=== PATIENT | female | born 1935 | race Caucasian/White ===

== ENCOUNTER 2017-04-21 11:29 | Emergency (ER) | payer MEDICARE, BC ==
[2017-04-21 12:30] LABS: CHLORIDE,CL 99 mmol/L (101-111); SODIUM,NA 132 mmol/L (135-145)
--- NOTE | 2017-04-21 12:58 | EDM.PDOC ---
ED HPI GENERAL MEDICAL PROBLEM - General Chief Complaint: Cardiovascular Problem Stated Complaint: [id number] EYES BLURRY HIGH BLOOD PRESSURE Time Seen by Provider: 04/21/17 12:30 Source of Information: Reports: Patient History Limitations: Reports: No Limitations - History of Present Illness INITIAL COMMENTS - FREE TEXT/NARRATIVE: This 81 yo female patient reports to the ED due to elevated blood pressure and blurred vision that started this morning at about 0800. The patient reports she was constipated last night, but has loose bowel movements today. The patient reports she has been eating and drinking normal amounts of flood and drink. The patient reports her vision symptoms have resolved since she has been in the ED and her blood pressure has come down. The patient reports no previous similar symptoms. Onset: Today Onset Date: 04/21/17 Onset Time: 08:00 Duration: Improving Location: Reports: Head Quality: Reports: Other Severity: Mild Improves with: Reports: None Worsens with: Reports: None Associated Symptoms: Reports: No Other Symptoms - Related Data Allergies Allergy/AdvReac Type Severity Reaction Status Date / Time sulfamethoxazole Allergy Rash Verified 04/21/17 12:25 [From Bactrim] trimethoprim [From Bactrim] Allergy Rash Verified 04/21/17 12:25 ED ROS GENERAL - Review of Systems Review Of Systems: ROS reveals no pertinent complaints other than HPI. ED EXAM, GENERAL - Physical Exam Exam: See Below Exam Limited By: No Limitations General Appearance: Alert, WD/WN, Mild Distress Eye Exam: Bilateral Eye: EOMI, Normal Inspection, PERRL Ears: Normal External Exam, Normal Canal, Hearing Grossly Normal, Normal TMs Nose: Normal Inspection, Normal Mucosa, No Blood Throat/Mouth: Normal Inspection, Normal Lips, Normal Teeth, Normal Gums, Normal Oropharynx, Normal Voice, No Airway Compromise Head: Atraumatic, Normocephalic Neck: Normal Inspection, Supple, Non-Tender, Full Range of Motion Respiratory/Chest: No Respiratory Distress, Lungs Clear, Normal Breath Sounds, No Accessory Muscle Use, Chest Non-Tender Cardiovascular: Normal Peripheral Pulses, Regular Rate, Rhythm, No Edema, No Gallop, No JVD, No Murmur, No Rub GI/Abdominal: Normal Bowel Sounds, Soft, Non-Tender, No Organomegaly, No Distention, No Abnormal Bruit, No Mass (Female) Exam: Deferred Rectal (Female) Exam: Deferred Back Exam: Normal Inspection, Full Range of Motion, NT Extremities: Normal Inspection, Normal Range of Motion, Non-Tender, Normal Capillary Refill, No Pedal Edema Neurological: Alert, Oriented, CN II-XII Intact, Normal Cognition, Normal Gait, Normal Reflexes, No Motor/Sensory Deficits Psychiatric: Normal Affect, Normal Mood Skin Exam: Warm, Dry, Intact, Normal Color, No Rash Lymphatic: No Adenopathy Course - Vital Signs Last Recorded V/S: Last Vital Signs Temp 36.6 C 04/21/17 12:12 Pulse 75 04/21/17 12:12 Resp 12 04/21/17 12:12 BP 165/67 H 04/21/17 12:16 Pulse Ox 100 04/21/17 12:12 - Orders/Labs/Meds Orders: Active Orders 24 hr Category Date Time Status EKG Documentation Completion [RC] URGENT Care 04/21/17 11:51 Active Sodium Chloride 0.9% [Normal Saline] 1,000 ml Med 04/21/17 12:37 Active IV .BOLUS Medication Orders Sodium Chloride (Normal Saline) 1,000 mls @ 500 mls/hr IV .BOLUS ONE Stop: 04/21/17 14:36 Last Admin: 04/21/17 13:06 Dose: 500 mls/hr Labs: Laboratory Tests 04/21/17 04/21/17 04/21/17 Range/Units 12:00 12:00 13:02 WBC 8.0 (5.0-10.0) 10^3/uL RBC 4.04 L (4.2-5.4) 10^6/uL Hgb 12.2 (12.0-16.0) g/dL Hct 36.2 L (37.0-47.0) % MCV 89.6 (80-100) fL MCH 30.2 (27.0-34.0) pg MCHC 33.7 (33.0-35.0) g/dL Plt Count 164 (150-450) 10^3/uL Neut % (Auto) 54.5 (42.2-75.2) % Lymph % (Auto) 33.8 (20.5-50.1) % [place] % (Auto) 9.9 H (2-8) % Eos % (Auto) 1.4 (1.0-3.0) % Baso % (Auto) 0.4 (0.0-1.0) % Sodium 132 L (135-145) mmol/L Potassium 3.7 (3.6-5.0) mmol/L Chloride 99 L (101-111) mmol/L Carbon Dioxide 26.0 (21.0-31.0) mmol/L Anion Gap 10.7 BUN 13 (7-18) mg/dL Creatinine 0.7 (0.6-1.3) mg/dL Est Cr Clr Drug Dosing TNP Estimated GFR (MDRD) > 60 BUN/Creatinine Ratio 18.57 Glucose 99 (74-105) mg/dL Calcium 8.7 (8.4-10.2) mg/dl Total Bilirubin 0.6 (0.2-1.0) mg/dL AST 20 (10-42) IU/L ALT 10 (10-60) IU/L Alkaline Phosphatase 46 (42-121) IU/L Troponin I < 0.02 (0.00-0.02) ng/ml Total Protein 6.7 (6.7-8.2) g/dl Albumin 3.8 (3.2-5.5) g/dl Globulin 2.9 Albumin/Globulin Ratio 1.31 Urine Color Yellow (YELLOW) Urine Appearance Cloudy (CLEAR) Urine pH 7.0 (5.0-9.0) Ur Specific [place] 1.010 (1.005-1.030) Urine Protein Negative (NEGATIVE) Urine Glucose (UA) Negative (NEGATIVE) Urine Ketones Negative (NEGATIVE) Urine Occult Blood Trace-intact H (NEGATIVE) Urine Nitrite Negative (NEGATIVE) Urine Bilirubin Negative (NEGATIVE) Urine Urobilinogen 0.2 (0.2-1.0) mg/dL Ur Leukocyte Esterase Small H (NEGATIVE) Urine RBC 5-10 H /HPF Urine WBC 50-75 H (0-5/HPF) /HPF Ur Epithelial Cells Rare /HPF Amorphous Sediment Few (0/HPF) /HPF Urine Bacteria Moderate H (0-FEW/HPF) /HPF Meds: Medications Generic Name Dose Route Start Last Admin Trade Name Freq PRN Reason Stop Dose Admin Sodium Chloride 1,000 mls @ 500 mls/hr 04/21/17 12:37 04/21/17 13:06 Normal Saline IV 04/21/17 14:36 500 mls/hr .BOLUS ONE Administration Departure - Departure Time of Disposition: 14:09 Disposition: Home, Self-Care 01 Condition: Fair Clinical Impression: Dizziness Instructions: Dizziness, [id number] Forms: ED Department Discharge Care Plan Goals: The patient and family were advised of the examination, lab, x-ray and EKG results during the visit. The patient was given IV fluids while in the ED with resolution of her symptoms. If the patient has any additional symptoms or concerns, the patient should follow-up with her primary care facility or return to the emergency department. - My Orders Last 24 Hours: My Active Orders 04/21/17 11:51 EKG Documentation Completion [RC] URGENT 04/21/17 12:37 Sodium Chloride 0.9% [Normal Saline] 1,000 ml IV .BOLUS - Assessment/Plan Last 24 Hours: My Active Orders 04/21/17 11:51 EKG Documentation Completion [RC] URGENT 04/21/17 12:37 Sodium Chloride 0.9% [Normal Saline] 1,000 ml IV .BOLUS
[2017-04-21] MEDS: Sodium Chloride 0.9% 1,000 ML IV ONE (13:06)
--- NOTE | 2017-04-21 13:10 | CR ---
CLINICAL HISTORY: 81-year-old female complaining of dizziness. INTERPRETATION: Huge hiatus hernia behind the heart to the left of midline partially silhouetting the ipsilateral hemidiaphragm that was present in retrospect on 21 February 2013 exam. Normal cardiac silhouette without new cephalization of flow, signs of alveolar edema or dependent ple ural effusion. No lung mass, hilar lymphadenopathy or focal lobar pneumonia. CONCLUSION: No acute new cardiopulmonary abnormality. Hiatus hernia.
== END 2017-04-21 14:57 | disposition home or self-care (01) ==
LOC: DL.ED 11:29
DX: R42 Dizziness and giddiness (principal); Z88.2 Allergy status to sulfonamides; Z88.1 Allergy status to other antibiotic agents
CPT/HCPCS: 36415; 71045; 80053; 81001; 84484; 85025; 93005; 93010; 96360; 96361; 99284; J7030

== ENCOUNTER 2017-05-31 09:14 | Emergency (ER) | payer MEDICARE, BC ==
--- NOTE | 2017-05-31 09:14 | EDM.PDOC ---
ED HPI GENERAL MEDICAL PROBLEM - General Stated Complaint: FALL. IN BY DL AMB. Time Seen by Provider: 05/31/17 09:00 Source of Information: Reports: Patient History Limitations: Reports: No Limitations - History of Present Illness INITIAL COMMENTS - FREE TEXT/NARRATIVE: This 81 yo female patient was brought to the ED by [facility] due to a fall. The patient reports she has fallen 2 times (once last night and once just prior to her arrival in the ED). The patient reports she was going down the ramp to her home when she noticed that she was moving too fast and fell. The patient reports she hit the left side of her head (upper ear), left chest, and left arm during the fall. The patient reports she was assisted up last night and did well throughout the night. This morning, the patient reports she was in the bathroom changing her colostomy bag and fell. The patient reports that she does not remember falling or hitting her head this morning, but could not get off the floor. The patient reports that her could not help her get to her feet. At the time of assessment, the patient reports pain to her left upper ear , left side of her head, left chest wall as well as generalized left sided soreness. The patient has several skin tears to her left elbow and left forearm from the fall last night (skin tears were bandaged last night by the patient's neighbor). The patient also reports feeling nauseated. Onset: Today (fell this morning), Other (also fell last night) Duration: Constant Location: Reports: Head (left temporal area, left upper ear), Chest (left lateral chest wall), Upper Extremity, Left (left elbow and forearm) Quality: Reports: Ache, Dull Severity: Moderate Improves with: Reports: None Worsens with: Reports: None Left Chest Pain Score (Numeric/FACES): 8 - Related Data Allergies Allergy/AdvReac Type Severity Reaction Status Date / Time sulfamethoxazole Allergy Rash Verified 04/21/17 12:25 [From Bactrim] trimethoprim [From Bactrim] Allergy Rash Verified 04/21/17 12:25 Home Meds: Home Meds Omeprazole 20 mg PO DAILY 05/31/17 [History] Raloxifene [Evista] 60 mg PO DAILY 05/31/17 [History] Past Medical History Oncologic (Cancer) History: Reports: Bladder - Past Surgical History Oncologic Surgical History: Reports: Other (See Below) Other Oncologic Surgeries/Procedures: urostomy Social & Family History - Tobacco Use Smoking Status *Q: Never Smoker - Caffeine Use Caffeine Use: Reports: None - Recreational Drug Use Recreational Drug Use: No ED ROS GENERAL - Review of Systems Review Of Systems: ROS reveals no pertinent complaints other than HPI. ED EXAM, GENERAL - Physical Exam Exam: See Below Exam Limited By: No Limitations General Appearance: Alert, WD/WN, Mild Distress Eye Exam: Bilateral Eye: EOMI, Normal Inspection, PERRL Ears: Normal Canal, Hearing Grossly Normal, Normal TMs, Other (bruising noted to the left upper ear) Nose: Normal Inspection, Normal Mucosa, No Blood Throat/Mouth: Normal Inspection, Normal Lips, Normal Teeth, Normal Gums, Normal Oropharynx, Normal Voice, No Airway Compromise Head: Other (left temporal tenderness to palpation ) Neck: Normal Inspection, Supple, Non-Tender, Full Range of Motion Respiratory/Chest: No Respiratory Distress, Lungs Clear, Normal Breath Sounds, No Accessory Muscle Use, Other (left chest wall tenderness) Cardiovascular: Normal Peripheral Pulses, Regular Rate, Rhythm, No Edema, No Gallop, No JVD, No Murmur, No Rub GI/Abdominal: Normal Bowel Sounds, Soft, Non-Tender, No Organomegaly, No Distention, No Abnormal Bruit, No Mass (Female) Exam: Deferred Rectal (Female) Exam: Deferred Back Exam: Normal Inspection, Full Range of Motion Extremities: Normal Range of Motion, No Pedal Edema, Normal Capillary Refill, Arm Pain (left arm and forearm tenderness with skin tears (bandaged from fall last night)) Neurological: Alert, Oriented, CN II-XII Intact, Normal Cognition Psychiatric: Normal Affect, Normal Mood Skin Exam: Ecchymosis (left elbow and left forearm), Wound/Incision (skin tears to left elbow and left forearm) Lymphatic: No Adenopathy Course - Vital Signs Last Recorded V/S: Last Vital Signs Temp 36.1 C 05/31/17 09:20 Pulse 68 05/31/17 09:20 Resp 16 05/31/17 09:20 BP 180/80 H 05/31/17 09:20 Pulse Ox 96 05/31/17 09:20 - Orders/Labs/Meds Orders: Active Orders 24 hr Category Date Time Status EKG Documentation Completion [RC] URGENT Care 05/31/17 09:05 Ordered UA W/MICROSCOPIC [URIN] Stat Lab 05/31/17 09:07 Ordered Sodium Chloride 0.9% @ 125 MLS/HR (1000ml) Med 05/31/17 09:45 Ordered Sodium Chloride 0.9% [Normal Saline] 1,000 ml IV ASDIRECTED Medication Orders Sodium Chloride (Normal Saline) 1,000 mls @ 125 mls/hr IV ASDIRECTED ZENOBIA Last Admin: 05/31/17 10:50 Dose: 125 mls/hr Labs: Laboratory Tests 05/31/17 05/31/17 05/31/17 Range/Units 09:17 09:17 10:23 WBC 9.6 (5.0-10.0) 10^3/uL RBC 4.11 L (4.2-5.4) 10^6/uL Hgb 12.4 (12.0-16.0) g/dL Hct 37.0 (37.0-47.0) % MCV 90.0 (80-100) fL MCH 30.2 (27.0-34.0) pg MCHC 33.5 (33.0-35.0) g/dL Plt Count 158 (150-450) 10^3/uL Neut % (Auto) 67.1 (42.2-75.2) % Lymph % (Auto) 24.0 (20.5-50.1) % [place] % (Auto) 8.1 H (2-8) % Eos % (Auto) 0.8 L (1.0-3.0) % Baso % (Auto) 0.0 (0.0-1.0) % Sodium 137 (135-145) mmol/L Potassium 4.0 (3.6-5.0) mmol/L Chloride 102 (101-111) mmol/L Carbon Dioxide 28.0 (21.0-31.0) mmol/L Anion Gap 11.0 BUN 13 (7-18) mg/dL Creatinine 0.7 (0.6-1.3) mg/dL Est Cr Clr Drug Dosing 49.01 mL/min Estimated GFR (MDRD) > 60 BUN/Creatinine Ratio 18.57 Glucose 114 H (74-105) mg/dL Calcium 8.8 (8.4-10.2) mg/dl Total Bilirubin 0.8 (0.2-1.0) mg/dL AST 22 (10-42) IU/L ALT 12 (10-60) IU/L Alkaline Phosphatase 46 (42-121) IU/L Troponin I < 0.02 (0.00-0.02) ng/ml Total Protein 7.0 (6.7-8.2) g/dl Albumin 3.9 (3.2-5.5) g/dl Globulin 3.1 Albumin/Globulin Ratio 1.26 Urine Color Yellow (YELLOW) Urine Appearance Slightly cloudy (CLEAR) Urine pH 7.0 (5.0-9.0) Ur Specific [place] 1.015 (1.005-1.030) Urine Protein 30 H (NEGATIVE) Urine Glucose (UA) Negative (NEGATIVE) Urine Ketones Negative (NEGATIVE) Urine Occult Blood Moderate H (NEGATIVE) Urine Nitrite Negative (NEGATIVE) Urine Bilirubin Negative (NEGATIVE) Urine Urobilinogen 0.2 (0.2-1.0) mg/dL Ur Leukocyte Esterase Negative (NEGATIVE) Urine RBC 40-50 H /HPF Urine WBC 10-20 H (0-5/HPF) /HPF Ur Epithelial Cells Few /HPF Amorphous Sediment Occasional (0/HPF) /HPF Urine Bacteria Moderate H (0-FEW/HPF) /HPF Hyaline Casts Moderate H /LPF Urine Mucus Many H /LPF Meds: Medications Generic Name Dose Route Start Last Admin Trade Name Freq PRN Reason Stop Dose Admin Sodium Chloride 1,000 mls @ 125 mls/hr 05/31/17 09:45 05/31/17 10:50 Normal Saline IV 125 mls/hr ASDIRECTED ZENOBIA Administration Discontinued Medications Generic Name Dose Route Start Last Admin Trade Name Freq PRN Reason Stop Dose Admin Acetaminophen 650 mg 05/31/17 10:57 Tylenol PO 05/31/17 10:58 NOW ONE Ondansetron HCl 4 mg 05/31/17 09:42 05/31/17 10:51 Zofran IV 05/31/17 09:43 4 mg ONETIME ONE Administration - Re-Assessments/Exams Free Text/Narrative Re-Assessment/Exam: 05/31/17 09:42 After the patient returned from CT, the patient became nauseated and vomited. An IV and Zofran were ordered. Departure - Departure Time of Disposition: 11:00 Disposition: Home, Self-Care 01 Condition: Fair Clinical Impression: Concussion Qualifiers: Encounter type: initial encounter Loss of consciousness presence/duration: without LOC Qualified Code(s): S06.0X0A - Concussion without loss of consciousness, initial encounter Syncope Qualifiers: Syncope type: unspecified Qualified Code(s): R55 - Syncope and collapse - Discharge Information Instructions: Concussion, Adult, [id number], Syncope, [id number] Forms: ED Department Discharge Care Plan Goals: The patient was advised of the examination, lab, EKG, CT and x-ray results during the visit. The patient was encouraged to rest and relax to allow her body to heal. If the patient has any additional symptoms or concerns, the patient should follow-up with her primary care facility or return to the emergency department. - My Orders Last 24 Hours: My Active Orders 05/31/17 09:05 EKG Documentation Completion [RC] URGENT 05/31/17 09:07 UA W/MICROSCOPIC [URIN] Stat 05/31/17 09:45 Sodium Chloride 0.9% @ 125 MLS/HR (1000ml) Sodium Chloride 0.9% [Normal Saline] 1,000 ml IV ASDIRECTED - Assessment/Plan Last 24 Hours: My Active Orders 05/31/17 09:05 EKG Documentation Completion [RC] URGENT 05/31/17 09:07 UA W/MICROSCOPIC [URIN] Stat 05/31/17 09:45 Sodium Chloride 0.9% @ 125 MLS/HR (1000ml) Sodium Chloride 0.9% [Normal Saline] 1,000 ml IV ASDIRECTED
[2017-05-31 09:42] LABS: CHLORIDE,CL 102 mmol/L (101-111); SODIUM,NA 137 mmol/L (135-145)
[2017-05-31] MEDS ORDERED: Ondansetron 4 MG/2 ML SDV IV ONE (09:42)
[2017-05-31] MEDS ORDERED: Sodium Chloride 0.9% 1,000 ML IV SCH (09:45)
--- NOTE | 2017-05-31 09:55 | CR ---
Clinical history: 81-year-old female left chest wall pain associated with recent fall. Interpretation: Chronic asymmetric elevation left hemidiaphragm and what appears to be a large new hi atus hernia, left of midline, since 21 April 2017 comparison film. No sign of left rib fracture, ipsilateral dependent pleural effusion or left-sided pneumothorax. Normal cardiac silhouette without alveolar edema or dependent pleural effusion. Right lung and pleura l spaces clear. CONCLUSION: Apparent large new left-sided hiatus hernia. No rib fracture or pneumothorax.
--- NOTE | 2017-05-31 10:48 | CT ---
CLINICAL HISTORY: 81-year-old 140 pound female who fell injuring left chest and ear (pain). SCAN TECHNIQUE: Volume acquisition of data from an emergency unenhanced CT scan of the head and brain obtained with the patient lying supine on the Siemens multislice CT scanner [place], [place]. All data archived in the PACS system for storage and study (bone/brain [facility]). INTERPRETATION: Negative exam. Uniformly thick bony calvarium without sign of skull fracture, underlying brain contusion or epidural /subdural hematoma. Symmetric clear pneumatization of the mastoid and paranasal sinuses. Nasal septum is straight in the midline. Generalized severe but symmetric cerebral cortical atrophy and scattered small microvascular hemisphe nicko ischemic infarcts. No supratentorial/posterior fossa mass lesion. No hydrocephalus. No acute intracerebral/intraventricu lar/subarachnoid bleed. Cerebellum and brainstem unremarkable. Normal TMJs. Zygomatic arches and bony orbits unremarkable. CONCLUSION: Atrophy and microvascular ischemic changes. No skull fracture, intracranial mass, hydroce phalus or bleed.
[2017-05-31] MEDS ORDERED: Acetaminophen 325 MG Tab PO ONE (10:57)
--- NOTE | 2017-06-01 10:24 | EKG ---
05/31/2017- LUIS FELIPE BYRD - EKG, per my reading, shows sinus rhythm at a rate of 73. [facility] /[id number]
== END 2017-05-31 11:32 | disposition home or self-care (01) ==
LOC: DL.ED 09:14
DX: S06.0X0A Concussion without loss of consciousness, initial encounter (principal); S51.012A Laceration without foreign body of left elbow, initial encounter; S51.812A Laceration without foreign body of left forearm, initial encounter; S50.02XA Contusion of left elbow, initial encounter; S50.12XA Contusion of left forearm, initial encounter; R55 Syncope and collapse; Z88.2 Allergy status to sulfonamides; Z88.1 Allergy status to other antibiotic agents; Z79.899 Other long term (current) drug therapy; W19.XXXA Unspecified fall, initial encounter; W22.8XXA Striking against or struck by other objects, initial encounter
CPT/HCPCS: 36415; 70450; 71045; 80053; 81001; 84484; 85025; 93005; 93010; 96361; 96374; 99284; A9270; J2405; J7030

== ENCOUNTER 2017-06-24 14:11 | Emergency (ER) | payer MEDICARE, BC ==
[2017-06-24] MEDS ORDERED: Cyclobenzaprine 10 MG Tab PO ONE (15:35)
[2017-06-24] MEDS ORDERED: Ketorolac 30 MG/ML SDV IM ONE (15:35)
--- NOTE | 2017-06-24 15:46 | EDM.PDOC ---
ED HPI GENERAL MEDICAL PROBLEM - General Chief Complaint: Back Pain or Injury Stated Complaint: SIDE PAIN, TROUBLE WALKING Time Seen by Provider: 06/24/17 15:30 Source of Information: Reports: Patient History Limitations: Reports: No Limitations - History of Present Illness INITIAL COMMENTS - FREE TEXT/NARRATIVE: This 81 yo female patient was brought to the Ed due to left hip pain. The patient reports that she fell about 1 month ago and has been doing pretty well at home. The patient was advised to use heat as well as avoid using her brace when she began to have more difficulties. The patient reports that she feels like her muscles are squeezing on the area causing increased pain. Duration: Day(s): (2), Constant, Getting Worse Location: Reports: Lower Extremity, Left Quality: Reports: Ache Severity: Moderate Worsens with: Reports: None Context: Reports: Other Associated Symptoms: Reports: No Other Symptoms Treatments [employer] REPA[employer]ER: Reports: Acetaminophen Left Flank Pain Score (Numeric/FACES): 10 - Related Data Allergies Allergy/AdvReac Type Severity Reaction Status Date / Time sulfamethoxazole Allergy Rash Verified 04/21/17 12:25 [From Bactrim] trimethoprim [From Bactrim] Allergy Rash Verified 04/21/17 12:25 Home Meds: Home Meds Omeprazole 20 mg PO DAILY 05/31/17 [History] Raloxifene [Evista] 60 mg PO DAILY 05/31/17 [History] Past Medical History HEENT History: Reports: Impaired Vision Gastrointestinal History: Reports: GERD Genitourinary History: Reports: Urostomy Oncologic (Cancer) History: Reports: Bladder - Past Surgical History Female Surgical History: Reports: Hysterectomy Oncologic Surgical History: Reports: Other (See Below) Other Oncologic Surgeries/Procedures: urostomy Social & Family History - Tobacco Use Smoking Status *Q: Never Smoker Second Hand Smoke Exposure: No - Caffeine Use Caffeine Use: Reports: Coffee, Tea - Recreational Drug Use Recreational Drug Use: No ED ROS GENERAL - Review of Systems Review Of Systems: ROS reveals no pertinent complaints other than HPI. ED EXAM,LOWER BACK PAIN/INJURY - Physical Exam Exam: See Below Exam Limited By: No Limitations General Appearance: Alert, WD/WN, Moderate Distress Eye Exam: Bilateral Eye: Normal Inspection, PERRL Ears: Normal External Exam Nose: Normal Inspection Throat/Mouth: Normal Inspection, Normal Lips, Normal Teeth, Normal Gums Head: Atraumatic, Normocephalic Neck: Normal Inspection, Supple, Non-Tender, Full Range of Motion Respiratory/Chest: No Respiratory Distress, Lungs Clear, Normal Breath Sounds, No Accessory Muscle Use, Chest Non-Tender Cardiovascular: Normal Peripheral Pulses GI/Abdominal: Normal Bowel Sounds, Soft, Non-Tender, No Organomegaly, No Distention, No Abnormal Bruit, No Mass (Female) Exam: Deferred Rectal (Female) Exam: Deferred Back Exam: Normal Inspection, Full Range of Motion, NT Extremities: Leg Pain (left hip pain with muscle spasms) Neurological: Alert, Normal Mood/Affect, CN II-XII Intact Psychiatric: Normal Affect, Normal Mood Skin Exam: Warm, Dry, Intact, Normal Color, No Rash Lymphatic: No Adenopathy Course - Vital Signs Last Recorded V/S: Last Vital Signs Temp 36.6 C 06/24/17 14:53 Pulse 84 06/24/17 14:53 Resp 16 06/24/17 14:53 BP 162/61 H 06/24/17 14:53 Pulse Ox 94 L 06/24/17 14:53 - Orders/Labs/Meds Meds: Medications Discontinued Medications Generic Name Dose Route Start Last Admin Trade Name Freq PRN Reason Stop Dose Admin Cyclobenzaprine HCl 10 mg 06/24/17 15:35 Flexeril PO 06/24/17 15:36 ONETIME ONE Ketorolac Tromethamine 30 mg 06/24/17 15:35 Toradol IM 06/24/17 15:36 ONETIME ONE Departure - Departure Time of Disposition: 15:46 Disposition: Home, Self-Care 01 Condition: Fair Clinical Impression: Muscle spasm Muscle strain of left hip Qualifiers: Encounter type: initial encounter Qualified Code(s): S76.012A - Strain of muscle, fascia and tendon of left hip, initial encounter - Discharge Information Instructions: Muscle Cramps and Spasms, [id number], Muscle Strain, Easy-to- Read Care Plan Goals: The patient was advised of the examination results during the visit. The patient was given an injection of Toradol and an oral dose of Flexeril while in the ED. The patient was discharged with a script for a Medrol Dose Pack to take as directed and Flexeril (5 mg) # 20 to take 1 by mouth every 6 hours as needed for muscle spasms. If the patient has any additional symptoms or concerns, the patient should follow-up with her primary care facility or return to the emergency department.
== END 2017-06-24 16:01 | disposition home or self-care (01) ==
LOC: DL.ED 14:11
DX: S76.012A Strain of muscle, fascia and tendon of left hip, initial encounter (principal); M62.838 Other muscle spasm; K21.9 Gastro-esophageal reflux disease without esophagitis; Z88.2 Allergy status to sulfonamides; Z88.1 Allergy status to other antibiotic agents; Z79.899 Other long term (current) drug therapy; W19.XXXA Unspecified fall, initial encounter
CPT/HCPCS: 96372; 99282; A9270; J1885; 99283

== ENCOUNTER 2018-06-09 14:26 | Inpatient (IN) | payer MEDICARE, BC ==
--- NOTE | 2018-06-09 14:27 | EDM.PDOC ---
ED HPI GENERAL MEDICAL PROBLEM - General Chief Complaint: Lower Extremity Injury/Pain Stated Complaint: AMBULANCE / HIP PAIN Time Seen by Provider: 06/09/18 14:27 Source of Information: Reports: Patient, EMS, Old Records, RN, RN Notes Reviewed History Limitations: Reports: No Limitations - History of Present Illness INITIAL COMMENTS - FREE TEXT/NARRATIVE: Pt arrives by ambulance with c/o left hip pain sustained from a ground level fall as she left the [employer] [facility]. She denies any other injury. Denies head injury or neck pain. Pt rates the pain 8/10. The pain reports her pain is worse with movement and improved with immobilization. Onset: Today, Sudden Duration: Constant Location: Reports: Lower Extremity, Left Quality: Reports: Ache Severity: Severe Improves with: Reports: Immobilization, Rest Worsens with: Reports: Movement Associated Symptoms: Reports: No Other Symptoms - Related Data Allergies Allergy/AdvReac Type Severity Reaction Status Date / Time acetaminophen [From Percocet] Allergy severe Verified 06/09/18 14:42 nausea, got me so sick oxycodone [From Percocet] Allergy severe Verified 06/09/18 14:42 nausea, got me so sick sulfamethoxazole Allergy Rash Verified 06/09/18 14:41 [From Bactrim] trimethoprim [From Bactrim] Allergy Rash Verified 06/09/18 14:41 Home Meds: Home Meds Omeprazole 20 mg PO DAILY 05/31/17 [History] Alendronate Sodium 70 mg PO WEEKLY 06/09/18 [History] Past Medical History HEENT History: Reports: Impaired Vision Gastrointestinal History: Reports: GERD Genitourinary History: Reports: Urostomy Oncologic (Cancer) History: Reports: Bladder - Past Surgical History Female Surgical History: Reports: Hysterectomy Oncologic Surgical History: Reports: Other (See Below) Other Oncologic Surgeries/Procedures: urostomy Social & Family History - Family History Family Medical History: Noncontributory - Caffeine Use Caffeine Use: Reports: Coffee, Tea - Living Situation & Occupation Living situation: Reports: , with Spouse Occupation: Retired Review of Systems - Review of Systems Review Of Systems: ROS reveals no pertinent complaints other than HPI. ED EXAM, GENERAL - Physical Exam Exam: See Below Exam Limited By: No Limitations General Appearance: Alert, WD/WN, No Apparent Distress Nose: Normal Inspection, Normal Mucosa, No Blood Throat/Mouth: Normal Inspection, Normal Lips, Normal Voice, No Airway Compromise Head: Atraumatic, Normocephalic Neck: Normal Inspection, Supple, Non-Tender, Full Range of Motion Respiratory/Chest: No Respiratory Distress, Lungs Clear, Normal Breath Sounds, No Accessory Muscle Use, Chest Non-Tender Cardiovascular: Normal Peripheral Pulses, Regular Rate, Rhythm, No Edema, No Gallop, No JVD, No Murmur, No Rub GI/Abdominal: Normal Bowel Sounds, Soft, No Distention Back Exam: Normal Inspection. No: CVA Tenderness (L), CVA Tenderness (R) Extremities: No Pedal Edema, Normal Capillary Refill, Limited Range of Motion ( Left hip and knee). No: Joint Swelling, Milagros's Sign, Redness Neurological: Alert, Oriented, CN II-XII Intact, Normal Cognition, No Motor/ Sensory Deficits Psychiatric: Normal Affect, Normal Mood Skin Exam: Warm, Dry, Intact, Normal Color, No Rash Course - Vital Signs Last Recorded V/S: Last Vital Signs Temp 37.1 C 06/09/18 14:25 Pulse 102 H 06/09/18 14:25 Resp 20 06/09/18 14:25 BP 202/84 H 06/09/18 14:25 Pulse Ox 94 L 06/09/18 14:25 - Orders/Labs/Meds Orders: Active Orders 24 hr Category Date Time Status Peripheral IV Care [RC] . DIRECTED Care 06/09/18 15:25 Active Sodium Chloride 0.9% [Saline Flush] Med 06/09/18 15:25 Active 10 ml FLUSH ASDIRECTED PRN Peripheral IV Insertion Adult [OM.PC] Stat Oth 06/09/18 15:25 Ordered Medication Orders Sodium Chloride (Saline Flush) 10 ml FLUSH ASDIRECTED PRN PRN Reason: Keep Vein Open Last Admin: 06/09/18 14:45 Dose: 10 ml Meds: Medications Generic Name Dose Route Start Last Admin Trade Name Freq PRN Reason Stop Dose Admin Sodium Chloride 10 ml 06/09/18 15:25 06/09/18 14:45 Saline Flush FLUSH 10 ml ASDIRECTED PRN Administration Keep Vein Open Discontinued Medications Generic Name Dose Route Start Last Admin Trade Name Freq PRN Reason Stop Dose Admin Hydromorphone HCl 0.5 mg 06/09/18 15:25 06/09/18 15:41 Dilaudid IVPUSH 06/09/18 15:26 0.5 mg ONETIME ONE Administration Ondansetron HCl 4 mg 06/09/18 15:25 06/09/18 15:41 Zofran IV 06/09/18 15:26 4 mg ONETIME ONE Administration Oxycodone/Acetaminophen 1 tab 06/09/18 14:30 06/09/18 15:04 Percocet 325-5 Mg PO 06/09/18 14:31 Not Given ONETIME ONE - Radiology Interpretation Free Text/Narrative:: CT pelvis: left superior pubic ramus fracture, left sacral ali fracture per Rad. report. Departure - Departure Time of Disposition: 16:23 (admitted to Dr. Jean-Baptiste) Disposition: Admitted As Inpatient 65 Condition: Good Clinical Impression: Fracture of superior ramus of left pubis Qualifiers: Encounter type: initial encounter Fracture type: closed Qualified Code(s): S32.512A - Fracture of superior rim of left pubis, initial encounter for closed fracture Sacral insufficiency fracture Qualifiers: Encounter type: initial encounter Qualified Code(s): M84.48XA - Pathological fracture, other site, initial encounter for fracture Fall on steps Qualifiers: Encounter type: initial encounter Qualified Code(s): W10.8XXA - Fall (on) (from ) other stairs and steps, initial encounter - Discharge Information *PRESCRIPTION DRUG MONITORING PROGRAM REVIEWED*: No *COPY OF PRESCRIPTION DRUG MONITORING REPORT IN PATIENT ERICK: No Forms: ED Department Discharge - My Orders Last 24 Hours: My Active Orders 06/09/18 15:25 Peripheral IV Care [RC] . DIRECTED Sodium Chloride 0.9% [Saline Flush] 10 ml FLUSH ASDIRECTED PRN Peripheral IV Insertion Adult [OM.PC] Stat - Assessment/Plan Last 24 Hours: My Active Orders 06/09/18 15:25 Peripheral IV Care [RC] . DIRECTED Sodium Chloride 0.9% [Saline Flush] 10 ml FLUSH ASDIRECTED PRN Peripheral IV Insertion Adult [OM.PC] Stat
[2018-06-09] MEDS ORDERED: Acetaminophen/oxyCODONE 325-5 MG Tab PO ONE (14:30)
[2018-06-09] MEDS: Sodium Chloride 0.9% 10 ML Syringe FLUSH PRN ×2 (14:45→18:04)
[2018-06-09] MEDS ORDERED: Ondansetron 4 MG/2 ML SDV IV ONE (15:25)
[2018-06-09] MEDS ORDERED: HYDROmorphone 1 MG/ML Syringe IVPUSH ONE (15:25)
--- NOTE | 2018-06-09 15:42 | CT ---
History: 82-year-old female complaining of left pelvic/hip pain after a fall. History of bladder cancer. Scan technique: Volume acquisition of data emergency unenhanced CT scan of the pelvis and both hips obtained on emergency basis without oral or IV contrast while patient was lying supine on a Siemens multislice scanner [place], [place]. All data archived in the PACS system for storage, reformatting axial/sagittal/coronal planes and study. Interpretation: Abnormal. 1. *Acute nondisplaced "greenstick" type fracture superior pubic ramus, pelvis medially on the left. 2. No sign of other pelvic fracture or hematoma. 3. Ostomy RLQ. 4. Age/gender appropriate bone demineralization. No sign of pathologic skeletal lesion. Lowest two (L4/L5) vertebral negative. 5. No fracture or dislocation either hip.. CONCLUSION: Acute nondisplaced fracture left superior pubic ramus.
[2018-06-09] MEDS ORDERED: Metoclopramide 10 MG/2 ML SDV IVPUSH ONE (16:09)
--- NOTE | 2018-06-09 16:54 | PCM.HP ---
H&P History of Present Illness - General Date of Service: 06/09/18 Admit Problem/Dx: Admission Diagnosis/Problem Admission Diagnosis/Problem Fracture of pelvis Source of Information: Patient - History of Present Illness Initial Comments - Free Text/Narative: Ms. Senior is an 82-year-old female with past medical history significant for bladder cancer status post removal with pouch formation, has urinary stoma, GERD who presented to the emergency room following a fall and was found to have left superior pubic ramus fracture, left sacral ali fracture. Patient was leaving the [employer], and missed the last step leading to her fall. She landed on her left side. She denied any head trauma. She said that she was in pain, and was unable to move. She presented to the ED for further care. In the ED, patient was hemodynamically stable. CT pelvis showed left superior pubic ramus fracture, left sacral ali fracture. Orthopedics contacted at [facility] and they recommended admission for PT/OT and no surgical intervention. On interview , patient was nauseous following receipt of Dilaudid. Patient has a known allergy to oxycodone, which is also nausea. Location: Reports: Lower Extremity, Left Quality: Reports: Ache Context: Reports: Other (With moving) - Related Data Allergies/Adverse Reactions: Allergies Allergy/AdvReac Type Severity Reaction Status Date / Time acetaminophen [From Percocet] Allergy severe Verified 06/09/18 14:42 nausea, got me so sick oxycodone [From Percocet] Allergy severe Verified 06/09/18 14:42 nausea, got me so sick sulfamethoxazole Allergy Rash Verified 06/09/18 14:41 [From Bactrim] trimethoprim [From Bactrim] Allergy Rash Verified 06/09/18 14:41 Home Medications: Home Meds Omeprazole 20 mg PO DAILY 05/31/17 [History] Alendronate Sodium 70 mg PO WEEKLY 06/09/18 [History] Past Medical History HEENT History: Reports: Impaired Vision Gastrointestinal History: Reports: GERD Genitourinary History: Reports: Urostomy Oncologic (Cancer) History: Reports: Bladder - Past Surgical History Female Surgical History: Reports: Hysterectomy Oncologic Surgical History: Reports: Other (See Below) Other Oncologic Surgeries/Procedures: urostomy Social & Family History - Family History Family Medical History: Noncontributory - Tobacco Use Smoking Status *Q: Never Smoker Second Hand Smoke Exposure: No - Caffeine Use Caffeine Use: Reports: Coffee, Tea - Living Situation & Occupation Living situation: Reports: , with Spouse Occupation: Retired H&P Review of Systems - Review of Systems: Review Of Systems: ROS reveals no pertinent complaints other than HPI. Exam - Exam Exam: See Below - Vital Signs Vital Signs: Last Vital Signs Temp 37.1 C 06/09/18 14:25 Pulse 102 H 06/09/18 14:25 Resp 20 06/09/18 14:25 BP 202/84 H 06/09/18 14:25 Pulse Ox 94 L 06/09/18 14:25 Weight: 61.235 kg - Exam General: Alert, Oriented HEENT: Conjunctiva Clear Neck: Supple Lungs: Clear to Auscultation, Normal Respiratory Effort Cardiovascular: Regular Rate, Regular Rhythm GI/Abdominal Exam: Normal Bowel Sounds, Soft, Non-Tender, Other (urine stoma in LLQ, full of clear urine) Extremities: No Pedal Edema, Limited Range of Motion (Of left leg due to pain) Skin: Warm, Dry, Intact Neuro Extensive - Mental Status: Alert, Oriented x3 Psychiatric: Alert, Normal Affect, Normal Mood Problem List Initiated/Reviewed/Updated: Yes Orders Last 24hrs: Active Orders 24 hr Category Date Time Status Patient Status [ADT] Routine ADT 06/09/18 16:45 Ordered Ambulate [RC] ASDIRECTED Care 06/09/18 16:45 Ordered Oxygen Therapy [RC] PRN Care 06/09/18 16:45 Ordered Peripheral IV Care [RC] . DIRECTED Care 06/09/18 15:25 Active Up With Assistance [RC] ASDIRECTED Care 06/09/18 16:45 Ordered VTE/DVT Education [RC] PER UNIT ROUTINE Care 06/09/18 16:45 Ordered Vital Signs [RC] Q4H Care 06/09/18 16:45 Ordered OT Evaluation and Treatment [CONS] Routine Cons 06/09/18 16:45 Ordered PT Evaluation and Treatment [CONS] Routine Cons 06/09/18 16:45 Ordered Regular Diet [DIET] Diet 06/09/18 Dinner Ordered CBC WITH AUTO DIFF [HEME] AM Lab 06/10/18 05:11 Ordered COMPREHENSIVE METABOLIC PN,CMP [CHEM] AM Lab 06/10/18 05:11 Ordered MAGNESIUM [CHEM] AM Lab 06/10/18 05:11 Ordered PHOSPHORUS [CHEM] AM Lab 06/10/18 05:11 Ordered Acetaminophen [Tylenol] Med 06/09/18 16:45 Ordered 650 mg PO Q4H PRN Heparin Sodium Med 06/09/18 22:00 Ordered 5,000 units SUBCUT Q8HR Omeprazole Med 06/10/18 09:00 Ordered 20 mg PO DAILY Ondansetron [Zofran] Med 06/09/18 16:45 Ordered 4 mg IVPUSH Q4H PRN Sodium Chloride 0.9% [Saline Flush] Med 06/09/18 15:25 Active 10 ml FLUSH ASDIRECTED PRN fentaNYL [Sublimaze] Med 06/09/18 16:52 Ordered 25 mcg IVPUSH Q2H PRN Peripheral IV Insertion Adult [OM.PC] Stat Oth 06/09/18 15:25 Ordered Resuscitation Status Routine Resus Stat 06/09/18 16:45 Ordered Medication Orders Acetaminophen (Tylenol) 650 mg PO Q4H PRN PRN Reason: Pain (Mild 1-3)/fever Fentanyl (Sublimaze) 25 mcg IVPUSH Q2H PRN PRN Reason: severe pain Heparin Sodium (Porcine) (Heparin Sodium) 5,000 units SUBCUT Q8HR ZENOBIA Omeprazole (Omeprazole) 20 mg PO DAILY ZENOBIA Ondansetron HCl (Zofran) 4 mg IVPUSH Q4H PRN PRN Reason: Nausea/Vomiting Sodium Chloride (Saline Flush) 10 ml FLUSH ASDIRECTED PRN PRN Reason: Keep Vein Open Last Admin: 06/09/18 14:45 Dose: 10 ml Assessment/Plan Comment:: Pelvic fracture Orthopedics consulted over the phone by ED, no surgical intervention is planned We'll admit patient for pain control, PT and OT Patient will need follow-up with orthopedics as outpatient We'll try fentanyl for pain GERD Continue omeprazole DVT prophylaxis heparin
[2018-06-09] MEDS: Ondansetron 4 MG/2 ML SDV IVPUSH PRN (18:04)
[2018-06-09] MEDS: fentaNYL 100 MCG/2 ML SDV IVPUSH PRN (19:31)
[2018-06-10] MEDS: Ondansetron 4 MG/2 ML SDV IVPUSH PRN ×2 (01:30→09:40)
[2018-06-10] MEDS: fentaNYL 100 MCG/2 ML SDV IVPUSH PRN ×8 (01:33→23:12)
[2018-06-10] MEDS: Acetaminophen 325 MG Tab PO PRN ×4 (04:12→20:02)
[2018-06-10] MEDS ORDERED: Omeprazole 20 MG Cap.CR PO SCH (06:00)
--- NOTE | 2018-06-10 07:38 | PCM.PN ---
- General Info Date of Service: 06/10/18 Admission Dx/Problem (Free Text): Admission Diagnosis/Problem Admission Diagnosis/Problem Fracture of pelvis Subjective Update: Patient did poorly overnight. She required 2-3 L nasal cannula due to hypoxia. She was in pain, that responded to fentanyl. She reported severe abdominal pain , and this morning patient was even more hypoxic, tachycardic. Patient also had significant abdominal tenderness on exam, with guarding and rebound. - Review of Systems Pulmonary: Reports: Shortness of Breath Cardiovascular: Denies: Chest Pain, Palpitations, Orthopnea Gastrointestinal: Reports: Abdominal Pain, Nausea - Patient Data Vitals - Most Recent: Last Vital Signs Temp 36.9 C 06/10/18 04:00 Pulse 107 H 06/09/18 16:45 Resp 24 H 06/10/18 04:00 BP 149/85 H 06/10/18 04:00 Pulse Ox 90 L 06/10/18 04:00 Weight - Most Recent: 61.235 kg I&O - Last 24 Hours: Intake & Output 06/09/18 06/10/18 06/10/18 22:59 06:59 14:59 Intake Total 100 Output Total 450 175 Balance -350 -175 Lab Results Last 24 Hours: Laboratory Results - last 24 hr 06/10/18 06/10/18 Range/Units 05:20 05:20 WBC 19.9 H (5.0-10.0) 10^3/uL RBC 4.58 (4.2-5.4) 10^6/uL Hgb 13.4 (12.0-16.0) g/dL Hct 40.2 (37.0-47.0) % MCV 87.8 (80-100) fL MCH 29.3 (27.0-34.0) pg MCHC 33.3 (33.0-35.0) g/dL Plt Count 193 (150-450) 10^3/uL Neut % (Auto) 87.2 H (42.2-75.2) % Lymph % (Auto) 6.1 L (20.5-50.1) % [place] % (Auto) 6.6 (2-8) % Eos % (Auto) 0.1 L (1.0-3.0) % Baso % (Auto) 0.0 (0.0-1.0) % Sodium 133 L (135-145) mmol/L Potassium 4.0 (3.6-5.0) mmol/L Chloride 98 L (101-111) mmol/L Carbon Dioxide 20.0 L (21.0-31.0) mmol/L Anion Gap 19.0 BUN 23 H (7-18) mg/dL Creatinine 1.1 (0.6-1.3) mg/dL Est Cr Clr Drug Dosing 27.83 mL/min Estimated GFR (MDRD) 47 BUN/Creatinine Ratio 20.90 Glucose 157 H (74-105) mg/dL Calcium 8.9 (8.4-10.2) mg/dl Phosphorus 4.2 (2.5-4.6) mg/dL Magnesium 1.4 L (1.8-2.5) mg/dL Total Bilirubin 1.2 H (0.2-1.0) mg/dL AST 30 (10-42) IU/L ALT 15 (10-60) IU/L Alkaline Phosphatase 37 L (42-121) IU/L Total Protein 6.8 (6.7-8.2) g/dl Albumin 3.7 (3.2-5.5) g/dl Globulin 3.1 Albumin/Globulin Ratio 1.19 Med Orders - Current: Current Medications Acetaminophen (Tylenol) 650 mg PO Q4H PRN PRN Reason: Pain (Mild 1-3)/fever Last Admin: 06/10/18 04:12 Dose: 650 mg Fentanyl (Sublimaze) 25 mcg IVPUSH Q2H PRN PRN Reason: severe pain Last Admin: 06/10/18 06:49 Dose: 25 mcg Heparin Sodium (Porcine) (Heparin Sodium) 5,000 units SUBCUT Q8HR [facility] Omeprazole (Omeprazole) 20 mg PO ACBRK [facility] Last Admin: 06/10/18 06:35 Dose: 20 mg Ondansetron HCl (Zofran) 4 mg IVPUSH Q4H PRN PRN Reason: Nausea/Vomiting Last Admin: 06/10/18 01:30 Dose: 4 mg Sodium Chloride (Saline Flush) 10 ml FLUSH ASDIRECTED PRN PRN Reason: Keep Vein Open Last Admin: 06/09/18 18:04 Dose: 10 ml Discontinued Medications Hydromorphone HCl (Dilaudid) 0.5 mg IVPUSH ONETIME ONE Stop: 06/09/18 15:26 Last Admin: 06/09/18 15:41 Dose: 0.5 mg Metoclopramide HCl (Reglan) 5 mg IVPUSH ONETIME ONE Stop: 06/09/18 16:10 Last Admin: 06/09/18 16:15 Dose: 5 mg Ondansetron HCl (Zofran) 4 mg IV ONETIME ONE Stop: 06/09/18 15:26 Last Admin: 06/09/18 15:41 Dose: 4 mg Oxycodone/Acetaminophen (Percocet 325-5 Mg) 1 tab PO ONETIME ONE Stop: 06/09/18 14:31 Last Admin: 06/09/18 15:04 Dose: Not Given - Exam General: Alert, Oriented Lungs: Clear to Auscultation (anteriorly) Cardiovascular: Tachycardia GI/Abdominal Exam: Normal Bowel Sounds, Guarding, Rebound, Tender Extremities: Normal Inspection Skin: Warm, Dry Neurological: No New Focal Deficit - Problem List Review Problem List Initiated/Reviewed/Updated: Yes - My Orders Last 24 Hours: My Active Orders 06/09/18 16:45 Patient Status [ADT] Routine Ambulate [RC] ASDIRECTED Oxygen Therapy [RC] PRN Up With Assistance [RC] ASDIRECTED VTE/DVT Education [RC] PER UNIT ROUTINE Vital Signs [RC] 00,04,08,12,16,20 OT Evaluation and Treatment [CONS] Routine PT Evaluation and Treatment [CONS] Routine Acetaminophen [Tylenol] 650 mg PO Q4H PRN Ondansetron [Zofran] 4 mg IVPUSH Q4H PRN Resuscitation Status Routine 06/09/18 16:52 fentaNYL [Sublimaze] 25 mcg IVPUSH Q2H PRN 06/09/18 Dinner Regular Diet [DIET] 06/10/18 06:00 Heparin Sodium 5,000 units SUBCUT Q8HR Omeprazole 20 mg PO ACBRK - Plan Plan:: Pelvic fracture Orthopedics consulted over the phone by ED, no surgical intervention is planned We'll admit patient for pain control, PT and OT Patient will need follow-up with orthopedics as outpatient Continue fentanyl Abdominal pain/guarding I'm concerned about an intra-abdominal complications The benefit of obtaining CT abdomen with IV contrast to rule out any intra- abdominal process outweighs the risk We'll order stat CT abdomen and pelvis with IV contrast Hypoxia Patient became significantly hypoxic overnight Patient is also tachycardic I'm concerned about PE We'll obtain CT PE study, will hydrate patient following the study GERD Continue omeprazole DVT prophylaxis heparin
[2018-06-10] MEDS: Heparin Sodium 5,000 Units/ML Vial SUBCUT SCH ×2 (07:42→14:31)
[2018-06-10] MEDS ORDERED: Iopamidol 612 MG/ML 75 ML Bottle IVPUSH ONE (08:09)
[2018-06-10] MEDS ORDERED: Iopamidol 755 Mg/ML 100 ML Bottle IVPUSH ONE (08:37)
[2018-06-10] MEDS: Sodium Chloride 0.9% 10 ML Syringe FLUSH PRN ×2 (09:42→09:46)
[2018-06-10] MEDS: Sodium Chloride 0.9% 1,000 ML IV SCH ×2 (09:43→22:50)
--- NOTE | 2018-06-10 10:27 | CT ---
Clinical history: 82-year-old 135 pound female diagnosed/hospitalized with left pelvic fractures (yesterday after fall). Hysterectomy and ureterostomy bag (bladder cancer). Rule out pulmonary embolism/infarct debilitated patient at bed rest. Scan technique: Volume acquisition of data from the chest (bony thorax, lungs and mediastinum) obtained during intravenous infusion 62 cc nonionic Isovue 370 contrast at 4 cc/s (via injector) while patient was lying supine on the Siemens multi slice scanner [place], [place]. All data archived in the PACS system for storage, reformatting axial/sagittal/coronal planes and study. Interpretation: Abnormal. 1. *Vascular flow defects and intraluminal thrombus main pulmonary artery segments/second tier pulmonary vascularity. 2. Asymmetric elevation left hemidiaphragm with underlying dense pneumonic-like atelectasis/infiltrative consolidation or infarct of the posterior segment, left lower lobe (LLL). 3. Bilateral small dependent subpulmonic pleural effusions and underlying posterior segment contralateral RLL atelectasis. 4. No lung mass, hilar/mediastinal lymphadenopathy or other indication of malignancy. No upper lobe pneumonia. 5. Normal caliber ectatic thoracic aorta. No aneurysm or dissection. 6. Normal cardiac silhouette. No pericardial effusion, cephalization of flow or signs of alveolar edema. 7. Ascites. 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
--- NOTE | 2018-06-10 10:57 | CT ---
Clinical history: 82-year-old 135 pound female hospitalized yesterday for fractured left pelvis who has "pulmonary embolic disease (thrombus and infarct)" on CT scan chest. Hysterectomy and cystectomy (bladder cancer). Scan technique: Volume acquisition of data from the abdomen and pelvis obtained after contrast enhanced (62 cc nonionic 370 contrast via injector) CT chest. All data archived [place], [place] in the PACS system for storage, reformatting axial/sagittal/veins and study. Interpretation: 1. Osteopenia and vertebroplasty L1 body. Asymmetric elevated left hemidiaphragm. 2. *Small dependent subpulmonic pleural effusions, bibasilar atelectasis and atelectasis/infiltrate/infarct posterior segment LLL. 3. Ascites. 4. Gallbladder, liver, stomach, spleen, pancreas and adrenal glands unremarkable (some respiratory motion artifact). 5. Atheromatous calcifications normal caliber aortoiliac vessels. No aneurysm or dissection. 6. Ureterostomy (ventral wall defect) and bag RLQ. Surgically absent bladder/uterus and no sign of pelvic or abdominal mass lesion, pelvic/mesenteric/retroperitoneal lymphadenopathy, mechanical bowel obstruction, ascites or free intraperitoneal air. 7. Normal reniform size, axis and configuration. No sign of urolithiasis or obstructive uropathy. Tiny 6.5 mm cyst right kidney.
[2018-06-10] MEDS ORDERED: Heparin Sodium 5,000 Units/ML Vial IVPUSH ONE (14:40)
[2018-06-10] MEDS ORDERED: Heparin Sodium/0.45% NaCl 25,000 UNITS/500 ML BAG IV SCH (14:45)
[2018-06-10] MEDS ORDERED: Cyclobenzaprine 10 MG Tab PO PRN (17:36)
[2018-06-11] MEDS: fentaNYL 100 MCG/2 ML SDV IVPUSH PRN ×2 (01:30→05:09)
[2018-06-11] MEDS ORDERED: Pantoprazole 40 MG Vial IVPUSH SCH (02:15)
[2018-06-11] MEDS: Ondansetron 4 MG/2 ML SDV IVPUSH PRN (03:19)
[2018-06-11] MEDS ORDERED: Pantoprazole 40 MG in Sodium Chloride 0.9% 100 ML IV SCH (04:15)
--- NOTE | 2018-06-11 04:35 | PCM.DCSUM1 ---
Discharge Summary - Hospital Course Free Text/Narrative:: Ms. Senior is an 82-year-old female with past medical history significant for bladder cancer status post removal with pouch formation, has urinary stoma, GERD who presented to the emergency room following a fall and was found to have left superior pubic ramus fracture, left sacral ali fracture. Patient was leaving the [email or web address], and missed the last step leading to her fall. She landed on her left side. She denied any head trauma. She said that she was in pain, and was unable to move. She presented to the ED for further care. In the ED, patient was hemodynamically stable. CT pelvis showed left superior pubic ramus fracture, left sacral ali fracture. Orthopedics contacted at [facility] the [facility] and they recommended admission for PT/OT and no surgical intervention. Overnight, patient became progressively hypoxic requiring 2-3 L nasal cannula from baseline room air. Is also complaining of abdominal pain, there is concern for intra-abdominal bleed. Said the abdomen and pelvis with IV contrast was obtained and results are as below (no RP bleed), and CT PE was positive for PE. Patient was started on IV heparin. Troponin was checked and was marginally elevated. Patient later developed episodes of coffee-ground emesis, and her hemoglobin decreased from normal range to 11.6 prior to transfer. This felt that the it was felt that the benefit of continuing heparin outweigh the risk of discontinuation. Spoke with Dr. Barbosa,ED provider at [facility] in [place] , [place] O accepted patient for transfer to be evaluated by gastroenterology and possibly undergo EGD. Patient was in hemodynamically stable condition and she will be transferred via ambulance. 1. *Vascular flow defects and intraluminal thrombus main pulmonary artery segments/second tier pulmonary vascularity. 2. Asymmetric elevation left hemidiaphragm with underlying dense pneumonic-like atelectasis/infiltrative consolidation or infarct of the posterior segment, left lower lobe (LLL). 3. Bilateral small dependent subpulmonic pleural effusions and underlying posterior segment contralateral RLL atelectasis. 4. No lung mass, hilar/ mediastinal lymphadenopathy or other indication of malignancy. No upper lobe pneumonia. 5. Normal caliber ectatic thoracic aorta. No aneurysm or dissection. 6. Normal cardiac silhouette. No pericardial effusion, cephalization of flow or signs of alveolar edema. 7. Ascites. Interpretation: Abnormal. 1. *Vascular flow defects and intraluminal thrombus main pulmonary artery segments/second tier pulmonary vascularity. 2. Asymmetric elevation left hemidiaphragm with underlying dense pneumonic-like atelectasis/ infiltrative consolidation or infarct of the posterior segment, left lower lobe (LLL). 3. Bilateral small dependent subpulmonic pleural effusions and underlying posterior segment contralateral RLL atelectasis. 4. No lung mass, hilar/mediastinal lymphadenopathy or other indication of malignancy. No upper lobe pneumonia. 5. Normal caliber ectatic thoracic aorta. No aneurysm or dissection. 6. Normal cardiac silhouette. No pericardial effusion, cephalization of flow or signs of alveolar edema. 7. Ascites. 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 - Discharge Data Discharge Date: 06/11/18 Discharge Disposition: DC/Tfer to [facility] 02 Condition: Stable - Patient Summary/Data Consults: Consultations 06/09/18 16:45 OT Evaluation and Treatment [CONS] Routine PT Evaluation and Treatment [CONS] Routine - Discharge Plan *PRESCRIPTION DRUG MONITORING PROGRAM REVIEWED*: No *COPY OF PRESCRIPTION DRUG MONITORING REPORT IN PATIENT ERICK: No Home Medications: Home Meds Alendronate Sodium 70 mg PO WEEKLY 06/09/18 [History] Acetaminophen [Tylenol] 650 mg PO Q4H PRN tablet 06/11/18 [Rx] Ondansetron [Zofran] 4 mg IVPUSH Q4H PRN vial 06/11/18 [Rx] Pantoprazole [ProTONIX IV] 40 mg IV .CONTINUOS vial 06/11/18 [Rx] Sodium Chloride 0.9% [Normal Saline] 125 ml IV .CONTINUOS bag 06/11/18 [Rx] fentaNYL [Sublimaze] 25 mcg IVPUSH Q2H PRN sdv 06/11/18 [Rx] Referrals: PCP,None [Primary Care Provider] - - Discharge Summary/Plan Comment DC Time >30 min.: Yes - General Info Date of Service: 06/11/18 - Review of Systems Gastrointestinal: Reports: Abdominal Pain, Nausea, Vomiting, Other (Coffee- ground emesis) - Patient Data Vitals - Most Recent: Last Vital Signs Temp 36.7 C 06/11/18 04:00 Pulse 124 H 06/11/18 04:00 Resp 24 H 06/11/18 04:00 BP 150/99 H 06/11/18 04:00 Pulse Ox 94 L 06/11/18 04:00 Weight - Most Recent: 61.235 kg I&O - Last 24 hours: Intake & Output 06/10/18 06/10/18 06/11/18 14:59 22:59 06:59 Intake Total 35 480 1000 Output Total 450 40 Balance 35 30 960 Lab Results - Last 24 hrs: Laboratory Results - last 24 hr 06/10/18 06/10/18 06/10/18 Range/Units 05:20 05:20 15:11 WBC 19.9 H (5.0-10.0) 10^3/uL RBC 4.58 (4.2-5.4) 10^6/uL Hgb 13.4 (12.0-16.0) g/dL Hct 40.2 (37.0-47.0) % MCV 87.8 (80-100) fL MCH 29.3 (27.0-34.0) pg MCHC 33.3 (33.0-35.0) g/dL Plt Count 193 (150-450) 10^3/uL Neut % (Auto) 87.2 H (42.2-75.2) % Lymph % (Auto) 6.1 L (20.5-50.1) % Concho % (Auto) 6.6 (2-8) % Eos % (Auto) 0.1 L (1.0-3.0) % Baso % (Auto) 0.0 (0.0-1.0) % APTT 41.3 H (22.0-34.0) SEC Sodium 133 L (135-145) mmol/L Potassium 4.0 (3.6-5.0) mmol/L Chloride 98 L (101-111) mmol/L Carbon Dioxide 20.0 L (21.0-31.0) mmol/L Anion Gap 19.0 BUN 23 H (7-18) mg/dL Creatinine 1.1 (0.6-1.3) mg/dL Est Cr Clr Drug Dosing 27.83 mL/min Estimated GFR (MDRD) 47 BUN/Creatinine Ratio 20.90 Glucose 157 H (74-105) mg/dL Calcium 8.9 (8.4-10.2) mg/dl Phosphorus 4.2 (2.5-4.6) mg/dL Magnesium 1.4 L (1.8-2.5) mg/dL Total Bilirubin 1.2 H (0.2-1.0) mg/dL AST 30 (10-42) IU/L ALT 15 (10-60) IU/L Alkaline Phosphatase 37 L (42-121) IU/L Troponin I (0.00-0.02) ng/ml Total Protein 6.8 (6.7-8.2) g/dl Albumin 3.7 (3.2-5.5) g/dl Globulin 3.1 Albumin/Globulin Ratio 1.19 06/10/18 06/10/18 06/10/18 Range/Units 15:11 22:00 22:00 WBC (5.0-10.0) 10^3/uL RBC (4.2-5.4) 10^6/uL Hgb (12.0-16.0) g/dL Hct (37.0-47.0) % MCV (80-100) fL MCH (27.0-34.0) pg MCHC (33.0-35.0) g/dL Plt Count (150-450) 10^3/uL Neut % (Auto) (42.2-75.2) % Lymph % (Auto) (20.5-50.1) % Concho % (Auto) (2-8) % Eos % (Auto) (1.0-3.0) % Baso % (Auto) (0.0-1.0) % APTT > 120.0 H* (22.0-34.0) SEC Sodium (135-145) mmol/L Potassium (3.6-5.0) mmol/L Chloride (101-111) mmol/L Carbon Dioxide (21.0-31.0) mmol/L Anion Gap BUN (7-18) mg/dL Creatinine (0.6-1.3) mg/dL Est Cr Clr Drug Dosing mL/min Estimated GFR (MDRD) BUN/Creatinine Ratio Glucose (74-105) mg/dL Calcium (8.4-10.2) mg/dl Phosphorus (2.5-4.6) mg/dL Magnesium (1.8-2.5) mg/dL Total Bilirubin (0.2-1.0) mg/dL AST (10-42) IU/L ALT (10-60) IU/L Alkaline Phosphatase (42-121) IU/L Troponin I 0.06 H* 0.05 H* (0.00-0.02) ng/ml Total Protein (6.7-8.2) g/dl Albumin (3.2-5.5) g/dl Globulin Albumin/Globulin Ratio 06/10/18 06/11/18 Range/Units 23:25 04:10 WBC 24.5 H 21.8 H (5.0-10.0) 10^3/uL RBC 4.15 L 3.92 L (4.2-5.4) 10^6/uL Hgb 12.3 11.6 L (12.0-16.0) g/dL Hct 36.2 L 34.4 L (37.0-47.0) % MCV 87.2 87.8 (80-100) fL MCH 29.6 29.6 (27.0-34.0) pg MCHC 34.0 33.7 (33.0-35.0) g/dL Plt Count 169 154 (150-450) 10^3/uL Neut % (Auto) (42.2-75.2) % Lymph % (Auto) (20.5-50.1) % Concho % (Auto) (2-8) % Eos % (Auto) (1.0-3.0) % Baso % (Auto) (0.0-1.0) % APTT (22.0-34.0) SEC Sodium (135-145) mmol/L Potassium (3.6-5.0) mmol/L Chloride (101-111) mmol/L Carbon Dioxide (21.0-31.0) mmol/L Anion Gap BUN (7-18) mg/dL Creatinine (0.6-1.3) mg/dL Est Cr Clr Drug Dosing mL/min Estimated GFR (MDRD) BUN/Creatinine Ratio Glucose (74-105) mg/dL Calcium (8.4-10.2) mg/dl Phosphorus (2.5-4.6) mg/dL Magnesium (1.8-2.5) mg/dL Total Bilirubin (0.2-1.0) mg/dL AST (10-42) IU/L ALT (10-60) IU/L Alkaline Phosphatase (42-121) IU/L Troponin I (0.00-0.02) ng/ml Total Protein (6.7-8.2) g/dl Albumin (3.2-5.5) g/dl Globulin Albumin/Globulin Ratio FARNAZ Results - Last 24 hrs: Microbiology 06/10/18 23:10 Gastric Occult Blood - Final Gastric Fluid Med Orders - Current: Current Medications Acetaminophen (Tylenol) 650 mg PO Q4H PRN PRN Reason: Pain (Mild 1-3)/fever Last Admin: 06/10/18 20:02 Dose: 650 mg Cyclobenzaprine HCl (Flexeril) 10 mg PO BID PRN PRN Reason: Spasms Last Admin: 06/10/18 21:43 Dose: 10 mg Fentanyl (Sublimaze) 25 mcg IVPUSH Q2H PRN PRN Reason: severe pain Last Admin: 06/11/18 01:30 Dose: 25 mcg Sodium Chloride (Normal Saline) 1,000 mls @ 75 mls/hr IV ASDIRECTED [facility] Last Infusion: 06/11/18 04:05 Dose: 125 mls/hr Heparin Sodium/Sodium Chloride (Heparin 25,000 Units In 1/2 Ns 500 Ml) 25,000 units in 500 mls @ 22.045 mls/hr IV TITRATE ZENOBIA; Protocol Last Titration: 06/11/18 04:05 Dose: 14.96 units/kg/hr, 18.322 mls/hr Pantoprazole Sodium 40 mg/ (Sodium Chloride) 100 mls @ 20 mls/hr IV .CONTINUOS ZENOBIA Last Admin: 06/11/18 04:27 Dose: 20 mls/hr Omeprazole (Omeprazole) 20 mg PO ACBRK ZENOBIA Last Admin: 06/10/18 06:35 Dose: 20 mg Ondansetron HCl (Zofran) 4 mg IVPUSH Q4H PRN PRN Reason: Nausea/Vomiting Last Admin: 06/11/18 03:19 Dose: 4 mg Sodium Chloride (Saline Flush) 10 ml FLUSH ASDIRECTED PRN PRN Reason: Keep Vein Open Last Admin: 06/10/18 09:46 Dose: 10 ml Discontinued Medications Heparin Sodium (Porcine) (Heparin Sodium) 5,000 units SUBCUT Q8HR [facility] Last Admin: 06/10/18 14:31 Dose: 5,000 units Heparin Sodium (Porcine) (Heparin Sodium) 5,000 units IVPUSH .BOLUS ONE Stop: 06/10/18 14:41 Last Admin: 06/10/18 15:34 Dose: Not Given Hydromorphone HCl (Dilaudid) 0.5 mg IVPUSH ONETIME ONE Stop: 06/09/18 15:26 Last Admin: 06/09/18 15:41 Dose: 0.5 mg Iopamidol (Isovue-300 (61%)) 75 ml IVPUSH ONETIME ONE Stop: 06/10/18 08:10 Iopamidol (Isovue-370 (76%)) 100 ml IVPUSH ONETIME ONE Stop: 06/10/18 08:38 Metoclopramide HCl (Reglan) 5 mg IVPUSH ONETIME ONE Stop: 06/09/18 16:10 Last Admin: 06/09/18 16:15 Dose: 5 mg Ondansetron HCl (Zofran) 4 mg IV ONETIME ONE Stop: 06/09/18 15:26 Last Admin: 06/09/18 15:41 Dose: 4 mg Oxycodone/Acetaminophen (Percocet 325-5 Mg) 1 tab PO ONETIME ONE Stop: 06/09/18 14:31 Last Admin: 06/09/18 15:04 Dose: Not Given Pantoprazole Sodium (Protonix Iv) 40 mg IVPUSH Q12H ZENOBIA Last Admin: 06/11/18 02:51 Dose: 40 mg - Exam General: Reports: Alert, Oriented Neck: Reports: Supple Lungs: Reports: Clear to Auscultation Cardiovascular: Reports: Tachycardia GI/Abdominal Exam: Normal Bowel Sounds, Soft, Tender. No: Rigid, Rebound Extremities: No Pedal Edema Skin: Reports: Warm, Dry Neurological: Reports: No New Focal Deficit Psy/Mental Status: Reports: Alert, Normal Affect, Normal Mood
== END 2018-06-11 05:15 | DRG 536 ==
LOC: DL.ED 14:26 → UNDOADMIN 16:39 → DL.MS 16:39
PROVIDERS: ADMIT Internal Medicine; ATTEND Internal Medicine
DX: S32.592A Other specified fracture of left pubis, initial encounter for closed fracture (principal); S32.19XA Other fracture of sacrum, initial encounter for closed fracture; K21.9 Gastro-esophageal reflux disease without esophagitis; Z85.51 Personal history of malignant neoplasm of bladder; Z88.5 Allergy status to narcotic agent; Z88.2 Allergy status to sulfonamides; Z79.899 Other long term (current) drug therapy; R09.02 Hypoxemia; R00.0 Tachycardia, unspecified; H54.7 Unspecified visual loss; Z90.710 Acquired absence of both cervix and uterus; W10.8XXA Fall (on) (from) other stairs and steps, initial encounter
CPT/HCPCS: 36415; 71275; 72192; 74177; 80053; 82271; 83735; 84100; 84484; 85025; 85027; 85730; 96374; 96375; 99285-25; A9270-GY; C9113; J1170; J1644; J2405; J2765; J3010; J7030; J7050; Q9967